=== PATIENT | female | born 1980 | race Caucasian/White ===

== ENCOUNTER 2019-07-14 11:08 | Emergency (ER) | payer OTHER ==
[~2019-07-14] VITALS: Ht 167.6 cm; Wt 78.4 kg
[2019-07-14] MEDS ORDERED: IV NORMAL SALINE 1,000ML 1,000 ML IV SCH (11:25)
--- NOTE | 2019-07-14 11:38 | PHYS DOC ---
Past History Past Medical History: Hypothyroid Past Surgical History: No Surgical History Smoking: Non-smoker Alcohol Use: Rarely Drug Use: None Adult General Chief Complaint Chief Complaint: VAGINAL BLEEDING HPI HPI 39-year-old female presents as [id number] with report of increased vaginal bleeding with pelvic cramping today. Patient reports history of twin gestation at approximately 9 weeks. Reports has been following with fertility clinic at . Patient reports underwent ultrasonography there last week which did not show any heart tones. Patient denies any vaginal discharge. Reports passage of clots. Reports came dizzy today and reported low blood pressures in 80s/50s and called her physician who instructed patient to present to the ER. Denies LOC. Denies fever or chills. Reports some associated nausea without vomiting. Last PO at 1030 with yogurt, crackers, and orange juice. 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 Current Medications Current Medications Current Medications Medications (Trade) Dose Ordered Sig/Dot Start Time Stop Time Status Last Admin Dose Admin Sodium Chloride 1,000 ml @ 1,000 mls/hr Q1H 07/14/19 11:25 07/14/19 12:24 UNV Physical Exam Physical Exam Constitutional: Well developed, well nourished, no acute distress, non-toxic appearance HENT: Normocephalic, atraumatic, oropharynx moist Eyes: Conjunctiva normal, no discharge Neck: Normal range of motion, no tenderness, supple Cardiovascular: Heart rate normal, regular rhythm Lungs & Thorax: Bilateral breath sounds clear to auscultation, no wheezing Abdomen: Soft, no tenderness, no guarding/rebound tenderness/distention 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: 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 Comparison/Correlation: None Findings: Transabdominal and transvaginal OB ultrasound exam was performed. Transvaginal technique was elected to better assess the adnexal structures. Uterus is retroflexed measuring 10.6 cm x 8 cm x 6.6. Small fibroids involve the myometrium. The largest of these measures up to 3.2 cm diameter. There is no intrauterine gestation. Endometrial thickness of up to 8 cm nodule. Intermediate to high echogenicity contents within the uterine cavity noted. Fluid and debris within the endometrial canal noted. Right ovary measures 4.1 cm x 2 cm bilaterally present. Left ovary measures 2.8 cm x 2.6 x 2.3 cm. No adnexal masses or pelvic free fluid. Normal flow on color Doppler imaging is evident. No evidence of ovarian torsion. Small follicles or physiologic in appearance involving the left ovary. Small amount of pelvic free fluid is present. Impression: No intrauterine gestation. Intermediate to high echogenicity contents within the uterine cavity which may represent hemorrhage and debris related to sequela of spontaneous . No suspicious flow evident within the endometrial cavity to definitely suggest retained products of conception. Consider continued follow-up serial beta hCG and possibly pelvic ultrasound exam. Electronically signed by: Jayson Argueta MD (07/14/2019 12:35 PM) [id number] Course & Med Decision Making Course & Med Decision Making Pertinent Labs and Imaging studies reviewed. (See chart for details) Patient presents with history of present illness and physical exam consistent for active miscarriage. Patient with history of twin gestation with report of recent ultrasound which was negative for heart tones. Patient reports significant bleeding started at 0100 this morning however has had a few days of spotting. Patient was concern secondary to low blood pressure and near syncopal episode. Blood pressure stable upon arrival. IV fluid hydration given. Labs obtained and posted to chart. UA contaminated. [facility] [place] 7653. ABO A+. Pelvic exam performed with moderate amount of active bleeding with debris stuck in os that was unsuccessfully removed with ring forceps and suctioning. US confirmed active miscarriage. Given amount of active bleeding and debris noted in os with reported near syncopal episodes at home, patient requiring transfer for FIRE EXTINGUISHER SPRINKLER INSPECTOR assessment and possible D&C. Last PO 1030. Discussed case with Dr. Chinchilla (FIRE EXTINGUISHER SPRINKLER INSPECTOR) at [facility] who is in agreement with transfer. Discussed findings and plan with patient and family, who acknowledge understanding and agreement. Dragon Disclaimer Dragon Disclaimer This electronic medical record was generated, in whole or in part, using a voice recognition dictation system. Departure Departure: Impression: Primary Impression: Incomplete miscarriage Additional Impression: Near syncope Disposition: 05 TRANSFER OTHER ([facility]- Dr. Chinchilla accepting) Condition: STABLE Referrals: CHRISSIE BARNES MD (PCP) Problem Qualifiers JESSENIA LINDSEY DO Jul 14, 2019 11:38
[2019-07-14 11:39] LABS: BASO # 0.1 x10^3/uL (0.0-0.2); BASO % 1 % (0-3); EOS # 0.1 x10^3/uL (0.0-0.7); EOS % 1 % (0-3); HEMATOCRIT 38.7 % (36.0-47.0); HEMOGLOBIN 12.9 g/dL (12.0-15.5); LYMPH # 1.7 x10^3/uL (1.0-4.8); LYMPH % 16 % (24-48); MEAN CORPUSCULAR HEMOGLOBIN 30 pg (25-35); MEAN CORPUSCULAR HGB CONC 33 g/dL (31-37); MEAN CORPUSCULAR VOLUME 91 fL (79-100); MONO # 0.4 x10^3/uL (0.0-1.1); MONO % 4 % (0-9); NEUT # 8.6 x10^3uL (1.8-7.7); NEUT % 79 % (31-73); PLATELET COUNT 281 x10^3/uL (140-400); RED BLOOD COUNT 4.26 x10^6/uL (3.50-5.40); RED CELL DISTRIBUTION WIDTH 13.5 % (11.5-14.5); WHITE BLOOD COUNT 10.8 x10^3/uL (4.0-11.0)
[2019-07-14 11:44] LABS: CALCIUM 8.6 mg/dL (8.5-10.1); CREATININE 0.6 mg/dL (0.6-1.0); GFR 110.2; POTASSIUM 3.7 mmol/L (3.5-5.1)
--- NOTE | 2019-07-14 12:38 | RAD ---
Examination: OB <14 WKS W/TV History: Bleeding in at approximately 9 weeks. Comparison/Correlation: None Findings: Transabdominal and transvaginal OB ultrasound exam was performed. Transvaginal technique was elected to better assess the adnexal structures. Uterus is retroflexed measuring 10.6 cm x 8 cm x 6.6. Small fibroids involve the myometrium. The largest of these measures up to 3.2 cm diameter. There is no intrauterine gestation. Endometrial thickness of up to 8 cm nodule. Intermediate to high echogenicity contents within the uterine cavity noted. Fluid and debris within the endometrial canal noted. Right ovary measures 4.1 cm x 2 cm bilaterally present. Left ovary measures 2.8 cm x 2.6 x 2.3 cm. No adnexal masses or pelvic free fluid. Normal flow on color Doppler imaging is evident. No evidence of ovarian torsion. Small follicles or physiologic in appearance involving the left ovary. Small amount of pelvic free fluid is present. Impression: No intrauterine gestation. Intermediate to high echogenicity contents within the uterine cavity which may represent hemorrhage and debris related to sequela of spontaneous . No suspicious flow evident within the endometrial cavity to definitely suggest retained products of conception. Consider continued follow-up serial beta hCG and possibly pelvic ultrasound exam. Electronically signed by: Jayson Argueta MD (07/14/2019 12:35 PM) [id number]
[2019-07-14 13:17] VITALS: BP 98/60
[2019-07-14 13:21] LABS: CLARITY,URINE BLOODY; COLOR,URINE RED
[2019-07-14] MEDS ORDERED: IV NORMAL SALINE 1,000ML 1,000 ML IV ONE (13:30)
[2019-07-14 13:34] LABS: BACTERIA,URINE 0 /HPF (0-FEW); RBC,URINE TNTC /HPF (0-2)
[2019-07-15 17:07] LABS: CHLAMYDIA PROBE Negative (Negative)
== END 2019-07-14 14:15 | disposition short-term general hospital (02) ==
LOC: ER 11:08
DX: O03.4 Incomplete spontaneous abortion without complication (principal); R55 Syncope and collapse; E03.9 Hypothyroidism, unspecified
CPT/HCPCS: 36415; 76801; 76817; 80048; 81001; 84702; 85025; 85610; 85730; 86900; 86901; 87491; 87591; 96360; 96361; 99285; Q0111; J7030